=== PATIENT | female | born 2000 | race Caucasian/White ===

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

== ENCOUNTER 2020-02-16 17:22 | Emergency (ER) | payer OTHER ==
[~2020-02-16] VITALS: Ht 157.5 cm; Wt 77.1 kg
[2020-02-16] MEDS ORDERED: [UNRECOGNIZED DRUG - OTHER] (17:45)
== END 2020-02-16 21:08 | disposition home or self-care (01) ==
LOC: ER 17:22
DX: R25.8 Other abnormal involuntary movements (principal); F32.9 Major depressive disorder, single episode, unspecified; N39.0 Urinary tract infection, site not specified

== ENCOUNTER 2021-09-15 02:56 | Emergency (ER) | payer OTHER ==
[~2021-09-15] VITALS: Ht 160 cm; Wt 76.2 kg
[~2021-09-15 02:56] MED LIST changes: +[UNRECOGNIZED DRUG - OTHER]
[2021-09-15] MEDS ORDERED: PROZAC40 MG (03:22)
[2021-09-15] MEDS ORDERED: LAMICTAL100 M1 (03:22)
[2021-09-15] MEDS ORDERED: KETO10TA2 PO (05:49)
== END 2021-09-15 05:56 ==
LOC: ER 02:56
DX: M79.641 Pain in right hand (principal)

== ENCOUNTER 2022-04-07 11:02 | Outpatient (CLI) | payer OTHER ==
[~2022-04-07 11:02] MED LIST changes: +KETO10TA2 PO; +LAMICTAL100 M1; +PROZAC40 MG
== END 2022-04-07 11:13 | disposition home or self-care (01) ==
LOC: RAD 11:02
DX: S32.2XXA Fracture of coccyx, initial encounter for closed fracture (principal)